=== PATIENT | male | born 1985 | race Caucasian/White ===

== ENCOUNTER 2023-01-31 18:03 | Emergency (ER) | payer BC ==
--- OUTSIDE RECORDS SUMMARY | 2023-01-31 18:06 | XMS REPORT | Continuity of Care Document ---
:1985 Author Organization [facility] t Address [address] [facility] [address] [place] [id number] Care Team Providers Name Role Phone Lab, Adc Fam Pob I Attending Clinician Unavailable Kimmy Man Attending Clinician KIMMY ARCEO Attending Clinician Unavailable Doctor Unassigned, [place] Attending Clinician Unavailable Problems This patient has no known problems. Allergies, Adverse Reactions, Alerts Allergy Allergy Status Severity Reaction(s) Onset Inactive Treating Comm ents Source Name Type Date Date Clinician NO KNOWN Drug Active Univers ALLERGIE Class ity of [facility] Social History Social Habit Start Date Stop Date Quantity Comments Source Sex Assigned At [facility] Smoking Status Start Date Stop Date Source Unknown if ever smoked [facility] Medications This patient has no known medications. Procedures Procedure Date / Time Performed Performing Clinician [facility] e CONSENT TO CONTACT FOR 2019-12-27 16:45:39 Doctor Unassigned, No [facility] VOLUNTARY RESEARCH [facility] CONSENT/REFUSAL FOR 2019-12-27 16:45:17 Doctor Unassigned, No [facility] DIAGNOSIS AND [facility] TREATMENT ASSIGNMENT OF BENEFITS 2019-12-27 16:45:06 Doctor Unassigned, No [facility] Encounters Start End Encounter Admission Attending Care Care Encounter Source Date/Time Date/Time Type Type Clinicians Facility Department ID 2019-12-27 2019-12-27 Laboratory Lab, Adc Fam Pob I [facility] [id number]. [id number] Univers 11:47:13 12:07:13 Only Kimmy Arceo [id number] [id number] Boni as Professio [phone] [place] [address] [address] 2019-12-27 2019-12-27 Outpatient R ZARINA, [facility] [id number] Univers 11:40:00 11:40:00 KIMMY knight [facility] 2019-12-27 2019-12-27 Orders Doctor YOLANDA [id number] Univers 00:00:00 00:00:00 Only Unassigned, PETE [id number] ity of [facility] [facility] [id number] Boni as [phone] [address] 2019-12-27 2019-12-27 Letter Doctor YOLANDA [id number] Univers 00:00:00 00:00:00 (Out) Unassigned, PETE [id number] ity of [place] [facility] [facility] [id number] Boni as [phone] [address] Results Test Description Test Time Test Comments Results Result Comments Source CONSENT TO CONTACT FOR VOLUNTARY RESEARCH 2019-12-27 16:45:3 9 Test Item Value Reference Range Interpretation Comme nts Consent To Contact For Voluntary Research (test code = 4947) Yes [facility]
[2023-01-31 19:33] LABS: Absolute Lymphocytes (CBC) 2.9 K/uL (0.7-4.9); Hematocrit 48.2 % (39.6-49.0); Lymphocytes % 28.9 % (15.3-44.8); MCV 88.6 fL (80-100); Platelets 289 thou/uL (152-406); RBC Red Blood Cell Count 5.45 M/uL (4.33-5.43)
[2023-01-31 19:50] LABS: ALT/SGPT 47 U/L (16-61); AST/SGOT 19 U/L (15-37); Albumin 3.6 g/dL (3.4-5.0); Alkaline Phosphatase 85 U/L (45-117); BUN Blood Urea Nitrogen 17 mg/dL (7-18); Bicarbonate 25 mEq/L (21-32); Bilirubin Total 0.4 mg/dL (0.2-1.0); Glomerular Filtration Rate 73 ml/min (=/>90); Glucose Level 148 mg/dL (74-106); Magnesium 2.5 mg/dL (1.6-2.4); Potassium 3.5 mEq/L (3.5-5.1); Protein, Total 7.9 g/dL (6.4-8.2); Sodium Level 139 mEq/L (136-145); Troponin High Sensitivity 44.2 pg/mL (<58.9)
[2023-01-31 19:51] LABS: Bilirubin Direct < 0.1 mg/dL (0-0.2); Bilirubin Indirect, Calculated ND mg/dL (0.2-0.8)
[2023-01-31 19:52] LABS: NT PRO-BNP < 5 pg/mL (<125)
--- NOTE | 2023-01-31 19:54 | RAD REPORT ---
EXAM DESCRIPTION: Luna Single View01/31/2023 7:25 pm CLINICAL HISTORY: Chest pain COMPARISON: none FINDINGS: The lungs appear clear of acute infiltrate. The heart is normal size IMPRESSION: No acute abnormalities displayed
--- NOTE | 2023-01-31 22:01 | ER ---
Nurse's Notes [facility] Name: Dewey Cabello Age: 37 yrs Sex: Male : 1985 Arrival Date: 01/31/2023 Time: 18:03 Bed 12 Private MD: Diagnosis: Chest pain, unspecified;Pain in left shoulder Presentation: 01/31 18:16 Chief complaint: Patient states: Left shoulder pain X2 weeks and right sided chest pain cm10 onset yesterday. Pt states that the pain is worse when sitting in certain positions. Coronavirus screen: Vaccine status: Patient reports receiving the 2nd dose of the covid vaccine. Client denies travel out of the [place] in the last 14 days. Ebola Screen: Patient denies travel to an Ebola-affected area in the 21 days before illness onset. No symptoms or risks identified at this time. Initial Sepsis Screen: Does the patient meet any 2 criteria? No. Patient's initial sepsis screen is negative. Does the patient have a suspected source of infection? No. Patient's initial sepsis screen is negative. 18:16 Method Of Arrival: Ambulatory cm10 18:18 Risk Assessment: Do you want to hurt yourself or someone else? Patient reports no cm10 desire to harm self or others. Onset of symptoms was January 31, 2023. 18:18 Acuity: BRENT 3 cm10 Triage Assessment: 20:33 General: Appears in no apparent distress. comfortable, Behavior is calm, cooperative. cm10 Pain: Complains of pain in chest. Neuro: No deficits noted. Guidry Agitation-Sedation Scale (RASS): 0 - Alert and Calm Level of Consciousness is awake, alert, obeys commands, Oriented to person, place, time, situation. Cardiovascular: No deficits noted. Reports chest pain, Patient's skin is warm and dry. Respiratory: No deficits noted. Airway is patent Respiratory effort is even, unlabored, Respiratory pattern is regular, symmetrical. GI: No deficits noted. No signs and/or symptoms were reported involving the gastrointestinal system. : No deficits noted. No signs and/or symptoms were reported regarding the genitourinary system. Derm: No deficits noted. No signs and/or symptoms reported regarding the dermatologic system. Skin is intact, Skin is pink, warm \T\ dry. Musculoskeletal: No deficits noted. Range of motion: intact in all extremities. Historical: - Allergies: 18:17 No Known Allergies; cm10 - Home Meds: 18:17 None [Active]; cm10 - PMHx: 18:17 None; cm10 - PSHx: 18:17 None; cm10 - Immunization history:: Adult Immunizations unknown. - Social history:: Smoking status: Patient denies any tobacco usage or history of. Screenin:[facility] ED Fall Risk Assessment (Adult) History of falling in the last 3 months, cm10 including since admission No falls in past 3 months (0 pts) Confusion or Disorientation No (0 pts) Intoxicated or Sedated No (0 pts) Impaired Gait No (0 pts) Mobility Assist Device Used No (0 pt) Altered Elimination No (0 pt) Score/Fall Risk Level 0 - 2 = Low Risk Oriented to surroundings, Maintained a safe environment, Hourly rounding (assess needs \T\ fall precautionary measures) done. Abuse screen: Denies threats or abuse. Denies injuries from another. Nutritional screening: No deficits noted. Tuberculosis screening: No symptoms or risk factors identified. Assessment: 21:52 Reassessment: Patient appears in no apparent distress at this time. No changes from cm10 previously documented assessment. Patient and/or family updated on plan of care and expected duration. Pain level reassessed. Patient is alert, oriented x 3, equal unlabored respirations, skin warm/dry/pink. 22:14 Pain: Pain does not radiate. Pain began gradually. cm10 Vital Signs: 18:16 BP 141 / 112; Pulse 109; Resp 18; Temp 97.7; Pulse Ox 93% on R/A; Weight 104.33 kg; cm10 Height 5 ft. 6 in. ; Pain 3/10; 20:00 BP 144 / 85; Pulse 107; Resp 18; Pulse Ox 92% on R/A; cm10 21:24 BP 143 / 105; Pulse 94; Resp 18; Pulse Ox 94% ; cm10 21:30 BP 130 / 97; Pulse 98; Resp 18; Pulse Ox 94% on R/A; cm10 18:16 Body Mass Index 37.12 (104.33 kg, 167.64 cm) cm10 18:16 Pain Scale: Adult cm10 ED Course: 18:04 Patient arrived in ED. rg4 18:06 Yuli Singh FNP-C is PHCP. kb 18:06 Natanael Chao MD is Attending Physician. kb 18:18 Triage completed. cm10 18:18 Arm band placed on Patient placed in an exam room, on a stretcher. cm10 19:23 Basic Metabolic Panel Sent. cm10 19:23 CBC with Diff Sent. cm10 19:23 LFT's Sent. cm10 19:23 Magnesium Sent. cm10 19:23 NT PRO-BNP Sent. cm10 19:23 Troponin HS Sent. cm10 19:23 D-Dimer Sent. cm10 19:23 COVID-19 SARS RT PCR Sent. cm10 19:23 Flu Sent. cm10 19:23 Initial lab(s) drawn, by me, sent to lab. Inserted saline lock: 20 gauge in right cm10 antecubital area, using aseptic technique. Blood collected. Patient maintains SpO2 saturation greater than 95% on room air. 19:27 XRAY Chest (1 view) In Process Unspecified. EDMS 20:06 Marah Carlisle, RN is Primary Nurse. cm10 20:36 Patient has correct armband on for positive identification. Bed in low position. Call cm10 light in reach. Provided Education on: ER process and procedures.. Client placed on continuous cardiac and pulse oximetry monitoring. NIBP monitoring applied. 21:24 Troponin HS Sent. cm10 22:13 No provider procedures requiring assistance completed. IV discontinued, intact, cm10 bleeding controlled, No redness/swelling at site. Pressure dressing applied. Administered Medications: No medications were administered Medication: 20:37 VIS not applicable for this client. cm10 Outcome: 22:01 Discharge ordered by . kb 22:14 Discharged to home ambulatory, with significant other, cm10 22:14 Condition: good 22:14 Discharge instructions given to patient, Instructed on discharge instructions, follow up and referral plans. Demonstrated understanding of instructions, follow-up care, 22:14 Patient left the ED. cm10 Signatures: Dispatcher [employer] EDMS Yuli Singh, SERGIO SELLERSP-Re Pedro rg4 Marah Carlisle, RN RN cm10 Corrections: (The following items were deleted from the chart) 18:18 18:16 Chief complaint: Patient states: Left shoulder pain and right sided chest pain cm10 onset yesterday. Pt states that the pain is worse when sitting in certain positions. cm10
--- NOTE | 2023-01-31 22:02 | EDPHYS ---
Physician Documentation [facility] Name: Dewey Cabello Age: 37 yrs Sex: Male : 1985 Arrival Date: 01/31/2023 Time: 18:03 Bed 12 Private MD: ED Physician Natanael Chao HPI: 01/31 23:08 This 37 yrs old Male presents to ER via Ambulatory with complaints of Chest Pain, Arm kb Pain. 23:08 Patient is a 37-year-old male with no medical history who presents for left shoulder kb pain that started 2 weeks ago that has been intermittent and right-sided chest pain that started yesterday. Denies shortness of breath, nausea, vomiting. Historical: - Allergies: 18:17 No Known Allergies; cm10 - Home Meds: 18:17 None [Active]; cm10 - PMHx: 18:17 None; cm10 - PSHx: 18:17 None; cm10 - Immunization history:: Adult Immunizations unknown. - Social history:: Smoking status: Patient denies any tobacco usage or history of. ROS: 23:06 Constitutional: Negative for fever, chills, and weight loss, kb 23:06 Cardiovascular: Positive for chest pain, Negative for edema, orthopnea, palpitations, paroxysmal nocturnal dyspnea, 23:06 MS/extremity: Positive for pain, of the anterior aspect of left shoulder, 23:06 All other systems are negative, Exam: 23:06 Constitutional: This is a well developed, well nourished patient who is awake, alert, kb and in no acute distress. Head/Face: Normocephalic, atraumatic. ENT: Moist Mucous membranes Cardiovascular: Regular rate Respiratory: Respirations even and unlabored. No increased work of breathing. Talking in full sentences Abdomen/GI: Soft, non-tender. No distention Skin: Warm, dry with normal turgor. Normal color. MS/ Extremity: Pulses equal, no cyanosis. Neurovascular intact. Full, normal range of motion. Neuro: Awake and alert, GCS 15, oriented to person, place, time, and situation. Moves all extremities. Normal gait. 23:14 ECG was reviewed by the Attending Physician. kb Vital Signs: 18:16 BP 141 / 112; Pulse 109; Resp 18; Temp 97.7; Pulse Ox 93% on R/A; Weight 104.33 kg; cm10 Height 5 ft. 6 in. ; Pain 3/10; 20:00 BP 144 / 85; Pulse 107; Resp 18; Pulse Ox 92% on R/A; cm10 21:24 BP 143 / 105; Pulse 94; Resp 18; Pulse Ox 94% ; cm10 21:30 BP 130 / 97; Pulse 98; Resp 18; Pulse Ox 94% on R/A; cm10 18:16 Body Mass Index 37.12 (104.33 kg, 167.64 cm) cm10 18:16 Pain Scale: Adult cm10 MDM: 18:07 Patient medically screened. kb 18:21 Data reviewed: vital signs, nurses notes. Scoring Tools PERC Rule for PE Age >/= 50 No kb HR >/= 100 Yes O2 Sat Room Air < 95% Yes Unilateral leg swelling No Hemoptysis No Recent surgery or trauma </= 4 wks ago requiring treatment with general anesthesia No (0 pt) Prior PE or DVT No Hormone use (Oral contraceptives, hormone replacement or estrogenic hormones use in males or female patients No. 23:07 Differential diagnosis: abnormal EKG, acute myocardial infarction, coronary artery kb disease chest wall pain. Counseling: I had a detailed discussion with the patient and/or guardian regarding the historical points, exam findings, and any diagnostic results supporting the discharge/admit diagnosis, lab results, radiology results, the need for outpatient follow up, a family practitioner, to return to the emergency department if symptoms worsen or persist or if there are any questions or concerns that arise at home. 01/31 18:19 Order name: Basic Metabolic Panel; Complete Time: 19:55 kb 01/31 18:19 Order name: CBC with Diff; Complete Time: 19:37 kb 01/31 18:19 Order name: LFT's; Complete Time: 19:55 kb 01/31 18:19 Order name: Magnesium; Complete Time: 19:55 kb 01/31 18:19 Order name: NT PRO-BNP; Complete Time: 19:55 kb 01/31 18:19 Order name: Troponin HS; Complete Time: 19:55 kb 01/31 18:21 Order name: Flu; Complete Time: 19:55 kb 01/31 18:21 Order name: COVID-19 SARS RT PCR; Complete Time: 20:03 kb 01/31 18:21 Order name: D-Dimer; Complete Time: 19:37 kb 12/03 21:16 Order name: Troponin HS; Complete Time: 21:55 cm10 01/31 18:19 Order name: XRAY Chest (1 view); Complete Time: 19:55 kb 01/31 18:19 Order name: EKG; Complete Time: 18:20 kb 01/31 18:19 Order name: Cardiac monitoring; Complete Time: 19:23 kb 01/31 18:19 Order name: EKG - Nurse/Tech; Complete Time: 18:26 kb 01/31 18:19 Order name: IV Saline Lock; Complete Time: 19:23 kb 01/31 18:19 Order name: Labs collected and sent; Complete Time: 19:23 kb 01/31 18:19 Order name: O2 Per Protocol; Complete Time: 19:23 kb 01/31 18:19 Order name: O2 Sat Monitoring; Complete Time: 19:23 kb 01/31 20:32 Order name: Vital Signs; Complete Time: 20:36 kb EC:14 Rate is 105 beats/min. Rhythm is regular. QRS [place] is Normal. SD interval is normal at kb 132 msec. QRS interval is normal at 86 msec. QT interval is normal at 446 msec. Administered Medications: No medications were administered Disposition Summary: 01/31/23 22:01 Discharge Ordered Notes: Location: Home kb Condition: Stable kb Diagnosis - Chest pain, unspecified kb - Pain in left shoulder kb Followup: kb - With: Emergency Department - When: As needed - Reason: Worsening of condition Followup: kb - With: Private Physician - When: 2 - 3 days - Reason: Recheck today's complaints, Continuance of care, Re-evaluation by your physician Discharge Instructions: - Discharge Summary Sheet kb - Shoulder Pain, [id number] kb - Nonspecific Chest Pain, Adult, [id number] kb Forms: - Medication Reconciliation Form kb - Thank You Letter kb - Antibiotic Education kb - Prescription Opioid Use kb - Patient Portal Instructions kb - Leadership Thank You Letter kb Signatures: Dispatcher [employer] Yuli Abernathy, ANURADHA-C ANURADHA-Marah Fish, RN RN cm10
[2023-01-31 22:58] VITALS: TEMP 97.7
[2023-01-31 23:01] VITALS: O2SAT 94
[2023-01-31 23:03] VITALS: BP 130/97
--- NOTE | 2023-02-02 13:34 | EKG ---
Test Date: 2023-01-31 Test Time: 18:24:30 Pacu Nurse: MARK MEASUREMENT RESULTS: Intervals: Rate: 105 ME: 132 QRSD: 86 QT: 338 QTc: 446 Gaines: P: 37 ME: 132 QRS: -3 T: 4 INTERPRETIVE STATEMENTS: Sinus tachycardia Otherwise normal ECG No previous ECG available for comparison Electronically Signed On 02-02-23 13:28:06 TIRE SERVICE TECHNICIAN by Kyle Grey
== END 2023-01-31 22:14 | disposition home or self-care (01) ==
LOC: ER 18:03
DX: R07.89 Other chest pain (principal); M25.512 Pain in left shoulder; Z11.52 Encounter for screening for COVID-19
CPT/HCPCS: 36415; 71045; 80048; 80076; 83735; 83880; 84484; 85025; 85379; 87635; 87804; 93005; 99284

== ENCOUNTER 2024-05-11 16:28 | Emergency (ER) | payer BC ==
[2024-05-11] MEDS ORDERED: lisinopriL 10 MG TAB ONE (16:52)
[2024-05-11] MEDS ORDERED: hydroCHLOROthiazide 25 MG TAB ONE (16:52)
--- NOTE | 2024-05-11 17:14 | RAD REPORT ---
EXAMINATION: TWO VIEW CHEST XR CLINICAL INDICATION: DYSPNEA TECHNIQUE: 2 views of the chest was performed. COMPARISON: 01/31/2023 FINDINGS: Linear atelectasis in both lung bases. Lungs otherwise clear. The heart is normal in size. No displac ed fractures evident. IMPRESSION: No acute or significant abnormalities.
[2024-05-11 17:18] LABS: Absolute Basophils 0.1 K/uL (0-0.5); Absolute Eosinophils 0.1 K/uL (0-0.5); Absolute Lymphocytes (CBC) 2.6 K/uL (0.7-4.9); Absolute Monocytes 0.8 K/uL (0.1-1.3); Absolute Neutrophil 5.3 K/uL (1.8-8.0); Basophils % 1.3 % (0-1.3); Eosinophils % 1.5 % (0-4.4); Hematocrit 48.6 % (39.6-49.0); Hemoglobin 17.3 g/dL (13.6-17.9); Lymphocytes % 28.9 % (15.3-44.8); MCH 30.9 pg (27.0-35.0); MCHC 35.5 g/dL (32.0-36.0); MPV 9.4 fL (7.6-11.3); Monocytes % 8.9 % (3.3-12.3); Neutrophils % 59.4 % (41.7-73.7); Nucleated Red Blood Cells % 0.1 % (0-0); Platelets 290 thou/uL (152-406); RBC Red Blood Cell Count 5.58 M/uL (4.33-5.43); Red Cell Distribution Width 12.9 % (12.1-15.2)
[2024-05-11 17:32] LABS: Anion Gap 10.7 mEq/L (5.0-15.0); Potassium 3.7 mEq/L (3.5-5.1)
[2024-05-11 17:42] LABS: Influenza A Ag Negative; Influenza B Ag Negative; SARS-CoV-2 Antigen Rapid Res Negative (Negative)
--- NOTE | 2024-05-11 17:48 | EDPHYS ---
Physician Documentation [facility] Name: Dewey Cabello Age: 39 yrs Sex: Male : 1985 Arrival Date: 05/11/2024 Time: 16:28 Bed 12 Private MD: ED Physician Tate Pringle HPI: 05/11 16:51 This 39 yrs old Unknown Male presents to ER via Ambulatory with complaints of High dr5 Blood Pressure. 16:51 The patient has elevated blood pressure and discovered this at a physician's office, dr5 and sent to the emergency department for evaluation. 19:10 Patient denies chest pain, shortness of breath, headache, or any other symptoms at this dr5 time Patient reports that he was at the eye doctor today when they noticed papilledema and was sent to the ER for further evaluation. Patient denies being sick or having any symptoms for the past week.. Historical: - Allergies: 16:37 No Known Allergies; ll1 - Home Meds: 16:37 None [Active]; ll1 - PMHx: 16:37 None; ll1 - PSHx: 16:37 None; ll1 - Immunization history:: Adult Immunizations up to date. - Infectious Disease History:: Denies. - Social history:: Smoking status: Patient denies any tobacco usage or history of. ROS: 19:10 Constitutional: as per hpi dr5 Exam: 19:10 Constitutional: This is a well developed, well nourished patient who is awake, alert, dr5 and in no acute distress. Head/Face: Normocephalic, atraumatic. Eyes: Pupils equal round and reactive to light, extra-ocular motions intact. Lids and lashes normal. Conjunctiva and sclera are non-icteric and not injected. Cornea within normal limits. Periorbital areas with no swelling, redness, or edema. Chest/axilla: Normal chest wall appearance and motion. Nontender with no deformity. No lesions are appreciated. Cardiovascular: Regular rate and rhythm with a normal S1 and S2. Normal PMI, no JVD. No pulse deficits. Respiratory: Lungs have equal breath sounds bilaterally, clear to auscultation. No rales, rhonchi or wheezes noted. No increased work of breathing, no retractions or nasal flaring. Abdomen/GI: Soft, non-tender, non-distended Back: No spinal tenderness. No costovertebral tenderness. Full range of motion. Skin: Warm, dry with normal turgor. Normal color with no rashes, no lesions, and no evidence of cellulitis. MS/ Extremity: Pulses equal, no cyanosis. Neurovascular intact. Full, normal range of motion. Neuro: Awake and alert, GCS 15, oriented to person, place, time, and situation. Cranial nerves II-XII grossly intact. Motor strength 5/5 in all extremities. Sensory grossly intact. Cerebellar exam normal. Normal gait. Vital Signs: 16:37 BP 179 / 135; Pulse 112; Resp 18; Pulse Ox 91% on R/A; Pain 0/10; ll1 17:11 Temp 99; Pulse Ox 93% ; ll1 17:57 BP 158 / 89; Pulse 94; Pulse Ox 95% ; dr5 16:37 Pain Scale: Adult ll1 MDM: 16:34 Medical Screening Exam initiated dr5 19:10 Differential diagnosis: hypertensive crisis, Viral infection such as COVID or flu, dr5 electrolyte abnormality, acute kidney injury, asymptomatic hypertension. Data interpreted: nuclear monitoring technician: Pulse oximetry: is 92 %. Data interpreted:. Data reviewed: vital signs, nurses notes, lab test result(s). I considered the following discharge prescriptions or medication management in the emergency department Medications were administered in the Emergency Department. See MAR. Care significantly affected by the following Social Determinants of Health: Poor access to healthcare and/or lack of insurance, Poor access to transportation, Problems related to employment. Counseling: I had a detailed discussion with the patient and/or guardian regarding the historical points, exam findings, and any diagnostic results supporting the discharge/admit diagnosis, the presence of at least one elevated blood pressure reading (>120/80) during this emergency department visit, lab results, the need for outpatient follow up, for definitive care, a family practitioner, to return to the emergency department if symptoms worsen or persist or if there are any questions or concerns that arise at home. Medication response: Hydrochlorothiazide and lisinopril. Response to treatment: Blood pressure decreased. ED course: Recommended patient follow-up with primary care doctor for further management. Chest x-ray did not reveal any infiltrates. COVID and flu are both negative. Patient remains asymptomatic on discharge. Will start patient on low-dose lisinopril and hydrochlorothiazide. All questions answered.. 05/11 16:42 Order name: Basic Metabolic Panel; Complete Time: 17:33 [facility] 05/11 16:42 Order name: CBC with Diff; Complete Time: 17:33 [facility] 05/11 16:42 Order name: COVID-19 Ag + Flu A+B Ag; Complete Time: 17:47 [facility] 05/11 16:42 Order name: Chest Pa And Lat (2 Views) XRAY; Complete Time: 17:21 [facility] 05/11 16:42 Order name: EKG; Complete Time: 16:42 [facility] 05/11 16:42 Order name: Cardiac monitoring [facility] 05/11 16:42 Order name: EKG - Nurse/Tech; Complete Time: 16:43 [facility] 05/11 16:42 Order name: IV Saline Lock [facility] 05/11 16:42 Order name: Labs collected and sent [facility] 05/11 16:42 Order name: O2 Per Protocol [facility] 05/11 16:42 Order name: O2 Sat Monitoring dr5 EC:48 Rate is 114 beats/min. Rhythm is regular. QRS [place] is Normal. [place] interval is normal at dr5 142 msec. QRS interval is normal at 86 msec. QT interval is normal at 322 msec. Administered Medications: 16:54 Drug: Hydrochlorothiazide PO 12.5 mg PO once Route: PO; ll1 18:30 Follow up: Response: No adverse reaction ll1 16:54 Drug: Lisinopril PO 10 mg PO once Route: PO; ll1 18:30 Follow up: Response: No adverse reaction ll1 Disposition: 05/12 10:38 Co-signature as Attending Physician, Tate Pringle MD I reviewed the patient's care rn provided by the Advanced Practice Provider and agree with the diagnosis and treatment plan. Disposition Summary: 05/11/24 17:48 Discharge Ordered Notes: Location: Home dr5 Condition: Stable dr5 Diagnosis - Essential (primary) hypertension dr5 Followup: dr5 - With: Emergency Department - When: As needed - Reason: Worsening of condition Followup: dr5 - With: Private Physician - When: 1 - 2 days - Reason: Recheck today's complaints, Continuance of care, Re-evaluation by your physician Discharge Instructions: - Discharge Summary Sheet dr5 - Hypertension, Adult dr5 Forms: - Medication Reconciliation Form dr5 - Patient Portal Instructions dr5 - Leadership Thank You Letter dr5 Prescriptions: - Lisinopril-Hydrochlorothiazide 10-12.5 mg Oral tablet - take 1 tablet ORAL route once daily; 30 tablet; Refills: 0, Product Selection dr5 Permitted Signatures: Dispatcher [employer] EDIL Tate Pringle MD MD rn Lewis, Lynsay, RN RN ll1 Vega Ashraf, IC DESIGNER STANDARD CELLS-C IC DESIGNER STANDARD CELLS-Cdr5 Corrections: (The following items were deleted from the chart) 05/11 16:42 16:42 BASIC METABOLIC PANEL+C.LAB.BRZ ordered. EDMS EDMS 16:42 16:42 CBC+H.LAB.BRZ ordered. EDMS EDMS 16:42 16:42 COVID-19 Ag + Flu A+B Ag+I.LAB.BRZ ordered. EDMS EDMS 19:11 16:51 The patient has elevated blood pressure and discovered this at a physician's dr5 office, and sent to the emergency department for evaluation, dr5
--- NOTE | 2024-05-11 17:48 | ER ---
Nurse's Notes [facility] Name: Dewey Cabello Age: 39 yrs Sex: Male : 1985 Arrival Date: 05/11/2024 Time: 16:28 Bed 12 Private MD: Diagnosis: Essential (primary) hypertension Presentation: 05/11 16:37 Chief complaint: Patient states: Went to eye doctor, BP was 166/130. They sent him in ll1 for evaluation. No pain, just fatigue. Coronavirus screen: Client denies travel out of the [place] in the last 14 days. At this time, the client does not indicate any symptoms associated with coronavirus-19. Ebola Screen: Patient denies travel to an Ebola-affected area in the 21 days before illness onset. Initial Sepsis Screen: Does the patient meet any 2 criteria? No. Patient's initial sepsis screen is negative. Does the patient have a suspected source of infection? No. Patient's initial sepsis screen is negative. Risk Assessment: Do you want to hurt yourself or someone else? Patient reports no desire to harm self or others. Onset of symptoms was May 11, 2024. 16:37 Method Of Arrival: Ambulatory ll1 16:37 Acuity: BRENT 2 ll1 Triage Assessment: 16:39 General: Appears in no apparent distress. Behavior is calm, cooperative, appropriate ll1 for age, Reports fatigue for. Pain: Denies pain. Cardiovascular: Reports high BP. Historical: - Allergies: 16:37 No Known Allergies; ll1 - Home Meds: 16:37 None [Active]; ll1 - PMHx: 16:37 None; ll1 - PSHx: 16:37 None; ll1 - Immunization history:: Adult Immunizations up to date. - Infectious Disease History:: Denies. - Social history:: Smoking status: Patient denies any tobacco usage or history of. Screenin:10 [facility] ED Fall Risk Assessment (Adult) History of falling in the last 3 months, ll1 including since admission Confusion or Disorientation No (0 pts) Intoxicated or Sedated No (0 pts) Impaired Gait No (0 pts) Mobility Assist Device Used No (0 pt) Altered Elimination No (0 pt) Score/Fall Risk Level 0 - 2 = Low Risk Maintained a safe environment, Hourly rounding (assess needs \T\ fall precautionary measures) done. Abuse screen: Denies threats or abuse. Nutritional screening: No deficits noted. Tuberculosis screening: No symptoms or risk factors identified. Assessment: 17:11 Reassessment: No changes from previously documented assessment. Patient and/or family ll1 updated on plan of care and expected duration. Pain level reassessed. Patient is alert, oriented x 3, equal unlabored respirations, skin warm/dry/pink. Vital Signs: 16:37 BP 179 / 135; Pulse 112; Resp 18; Pulse Ox 91% on R/A; Pain 0/10; ll1 17:11 Temp 99; Pulse Ox 93% ; ll1 17:57 BP 158 / 89; Pulse 94; Pulse Ox 95% ; dr5 16:37 Pain Scale: Adult ll1 ED Course: 16:32 Patient arrived in ED. cj3 16:33 Vega Ashraf FNP-C [facility]. dr5 16:33 Tate Pringle MD is Attending Physician. dr5 16:39 Triage completed. ll1 16:39 Arm band placed on. ll1 16:45 Patient has correct armband on for positive identification. Provided Education on: ER ll1 procedures and process. 17:08 Chest Pa And Lat (2 Views) XRAY In Process Unspecified. EDMS 17:10 Initial lab(s) drawn, by me, sent to lab. COVID swab sent to lab. Flu and/or RSV swab ll1 sent to lab. Inserted saline lock: 20 gauge in right antecubital area, using aseptic technique. Blood collected. Flushed with 10 mL NS. 18:09 No provider procedures requiring assistance completed. IV discontinued, intact, ll1 bleeding controlled, No redness/swelling at site. Pressure dressing applied. Administered Medications: 16:54 Drug: Hydrochlorothiazide PO 12.5 mg PO once Route: PO; ll1 18:30 Follow up: Response: No adverse reaction ll1 16:54 Drug: Lisinopril PO 10 mg PO once Route: PO; ll1 18:30 Follow up: Response: No adverse reaction ll1 Medication: 18:30 VIS not applicable for this client. ll1 Outcome: 17:48 Discharge ordered by . dr5 18:10 Patient left the ED. ll1 18:10 Discharged to home ambulatory, ll1 18:10 Condition: stable 18:10 Discharge instructions given to patient, Instructed on discharge instructions, follow up and referral plans. Signatures: Dispatcher [employer] Antwan Ramírez RN RN ll1 Vega Ashraf, PIECE WORKER-C PIECE WORKER-Cdr5 Lynette Herrera cj3 Corrections: (The following items were deleted from the chart) 16:39 16:37 Chief complaint: Patient states: Went to eye doctor, BP was 166/130. They sent ll1 him in for evaluation. ll1
[2024-05-11 18:14] VITALS: TEMP 99
[2024-05-11 18:16] VITALS: BP 158/89; O2SAT 95
== END 2024-05-11 18:10 | disposition home or self-care (01) ==
LOC: ER 16:28
DX: I10 Essential (primary) hypertension (principal); Z11.52 Encounter for screening for COVID-19
CPT/HCPCS: 36415; 71046; 80048; 85025; 87428; 93005; 99284